=== PATIENT | female | born 1960 | race Caucasian/White ===

== ENCOUNTER → 2016-05-10 | Outpatient (REF) | payer BC | LOC: M LAB 11:37 | PROVIDERS: ATTEND Physician Assistant | DX: N39.0 Urinary tract infection, site not specified (principal) ==

== ENCOUNTER → 2016-05-27 | Outpatient (CLI) | payer BC ==
--- NOTE | 2016-05-27 14:34 | REP ---
PET/CT: HISTORY: Solitary pulmonary nodule. COMPARISONS: Chest CT study May 01, 2016. TECHNIQUE: 63 minutes following the intravenous injection of a 9.0 mCi dose of F-18 FDG, three-dimensional PET scintigraphy is acquired from the skull base to the proximal thighs. Triplanar noncontrast CT scanning is acquired through the same anatomic range for attenuation correction, and image registration with scan parameters optimized to minimize radiation exposure to the patient. PET scintigraphy and CT datasets were fused and displayed on a workstation with multiplanar and projection display capability. PET/CT FINDINGS: There is discernible, although non-hypermetabolic uptake within the pleuroparenchymal density in the right middle lobe. This is unchanged morphologically from the recent CT study. It has a fibroatelectatic morphologic appearance. Maximum SUV value 1.6. No other abnormal FDG accumulation is seen in the chest. The head and neck soft tissues are unremarkable. In the abdomen and pelvis, normal hepatic, splenic, gastrointestinal, and genitourinary FDG accumulation is seen. No abnormal abdominal or pelvic FDG accumulation is seen. No adrenal lesion is observed. The patient is status post gastric bypass. There are dystrophic calcifications visible in the right adnexal region unchanged from recent CT. IMPRESSION: Negative PET CT study. Follow up chest CT scan suggested. Signed by Kirby Mares MD 05/27/2016 06:37 P
== END ==
LOC: M RAD 07:41
PROVIDERS: ATTEND Internal Medicine Pulmonary Disease
DX: R91.1 Solitary pulmonary nodule (principal)
CPT/HCPCS: 78815; A9552

== ENCOUNTER → 2016-07-14 | Outpatient (REF) | payer BC | LOC: M LAB REF 12:34 | PROVIDERS: ATTEND Internal Medicine | DX: N76.0 Acute vaginitis (principal) ==

== ENCOUNTER → 2016-07-16 | Outpatient (REF) | payer BC | LOC: M LAB REF 11:59 | PROVIDERS: ATTEND Internal Medicine | DX: Z98.84 Bariatric surgery status (principal) ==

== ENCOUNTER → 2016-08-14 | Outpatient (CLI) | payer BC ==
--- NOTE | 2016-08-14 09:54 | REP ---
CT CHEST WITHOUT CONTRAST: 08/14/2016. Comparison: CT 05/01/2016. CT PET 05/27/2016. Clinical history: Solitary pulmonary nodule. CT PET negative. Findings: Noncontrast protocol utilized with coronal and sagittal reconstructions and coronal MIP lung windows. Scanning through the lungs again show a right middle lobe lesion, pleural based against the anterior chest wall, anterior diaphragm in the medial segment of the right middle lobe and measuring approximately 1.5 cm AP x 1 cm transverse x 1.8 cm vertical. It has linear stranding superiorly to the pleura and abuts the diaphragm and anterior chest wall pleura inferiorly. It actually appears slightly smaller in volume than on the previous study. I do not see progression. No new parenchymal findings, nodules or masses. There is some hyperinflation noted. There is no pleural thickening, calcified pleural plaque or other pleural-based mass. The heart is not enlarged. There is no pericardial thickening or effusion. There are some coronary calcifications noted. The aorta has calcifications of the arch. No axillary or supraclavicular mass. The bone windows show the sternum, manubrium, clavicles, AC joints, humeral heads, glenohumeral joints without acute finding. Ribs grossly intact. There are degenerative changes in the spine with marginal osteophytes but no compression deformity or destructive lesion. Upper abdomen shows staple lines from gastric bypass surgery as before. No splenomegaly. The liver is without a focal lesion. Gallbladder shows no calcified stone or mass. Upper poles of kidneys and adrenal glands unchanged. Visible portion of pancreas intact. Impression: 1. Stable parenchymal opacity right middle lobe medial segment abutting both the diaphragmatic and anterior chest wall pleura without other parenchymal lung lesions. Its size is stable to slightly smaller since the 05/01/2016 exam. 2. No mediastinal or hilar adenopathy nor mass. The bones grossly intact. Stable examination. Upper abdomen grossly intact. No new finding. Signed by Delroy Mclaughlin MD 08/14/2016 03:00 P
== END ==
LOC: M RAD 08:38
PROVIDERS: ATTEND Internal Medicine Pulmonary Disease
DX: R91.1 Solitary pulmonary nodule (principal)

== ENCOUNTER → 2016-11-21 | Outpatient (CLI) | payer BC ==
[2016-11-21 09:19] LABS: BASO % 0.4 % (0.0-1.0); EOS # 0.1 K/mm3 (0.0-0.50); LARGE UNSTAINED CELL # 0.2 K/mm3 (0.0-0.4); LARGE UNSTAINED CELL % 2.4 % (0.0-4.0); LYMPH # 1.6 K/mm3 (1.5-4.5); LYMPH % 26.4 % (24.0-44.0); MEAN CORPUSCULAR HEMOGLOBIN 33.7 pg (27.0-33.0); MEAN CORPUSCULAR HGB CONC 33.9 g/dl (32.0-36.5); MEAN CORPUSCULAR VOLUME 99.5 fl (80.0-96.0); MONO # 0.4 K/mm3 (0.0-0.8); MONO % 6.1 % (0.0-5.0); NEUTROPHILS # 3.9 K/mm3 (1.8-7.7); NEUTROPHILS % 62.8 % (36.0-66.0); PLATELET COUNT, AUTOMATED 260 k/mm3 (150-450); RED CELL DISTRIBUTION WIDTH 12.4 % (11.5-14.5); WHITE BLOOD COUNT 6.2 K/mm3 (4.0-10.0)
[2016-11-21 09:46] LABS: ALBUMIN 3.5 GM/DL (3.2-5.2); ALBUMIN/GLOBULIN RATIO 1.06 (1.00-1.93); ALKALINE PHOSPHATASE 100 U/L (45-117); ALT/SGPT 20 U/L (12-78); ANION GAP 5 MEQ/L (8-16); AST/SGOT 11 U/L (15-37); BILIRUBIN,TOTAL 0.4 MG/DL (0.2-1.0); BLOOD UREA NITROGEN 16 MG/DL (7-18); CARBON DIOXIDE LEVEL 30 MEQ/L (21-32); CHLORIDE LEVEL 106 MEQ/L (98-107); CREATININE FOR GFR 0.59 MG/DL (0.55-1.02); FERRITIN 170 NG/ML (8-252); GLOMERULAR FILTRATION RATE > 60.0 (>51); GLUCOSE, FASTING 82 MG/DL (70-105); MAGNESIUM LEVEL 2.3 MG/DL (1.8-2.4); PERCENT SATURATION 47.1 % (13.2-37.4); PHOSPHORUS LEVEL 3.7 MG/DL (2.5-4.9); POTASSIUM SERUM 4.2 MEQ/L (3.5-5.1); SODIUM LEVEL 141 MEQ/L (136-145); TOTAL IRON BINDING CAPACITY 244 UG/DL (250-450); TOTAL PROTEIN 6.8 GM/DL (6.4-8.2)
[2016-11-23 09:57] LABS: VITAMIN B12 LEVEL 621 PG/ML (247-911)
[2016-11-24 10:55] LABS: PRETREATED FOLATE FOR RBCFOL 13.2 NG/ML
== END ==
LOC: M LAB 08:31
PROVIDERS: ATTEND Surgery
DX: K91.2 Postsurgical malabsorption, not elsewhere classified (principal); E55.9 Vitamin D deficiency, unspecified; Z98.84 Bariatric surgery status

== ENCOUNTER → 2017-02-19 | Outpatient (CLI) | payer BC ==
--- NOTE | 2017-02-19 13:58 | REP ---
CT of the chest without IV contrast for lung nodule. Followup: Comparisons are 05/01/2016 and 08/14/2016. The patients known right little middle lobe pleural-based lung nodule has slightly increased in size today measuring 2.2 by 1.0 cm (previously 1.5 x 1.0 cm). Additionally, there is now linear stranding extending from the superior margin of this nodule toward the right hilus. There are no other nodules or masses. There are no acute infiltrates or effusions. There are normal size mediastinal nodes. There is no mediastinal lymph node enlargement. No axillary lymph node enlargement. In the absence of IV contrast the study is insensitive for hilar lymph node enlargement. Thoracic aorta is unremarkable. Cardiac size normal. There is calcified atheroma in the coronary arteries. The visualized upper abdominal contents are unremarkable. There is no adrenal mass. There are surgical staple lines compatible with bariatric surgery, unchanged. Impression: The nodule in the right middle lobe has slightly increased size and there is now linear stranding from this nodule extending toward the right hilus. Signed by Enzo Lynn MD 02/19/2017 01:49 P
== END ==
LOC: M RAD 08:32
PROVIDERS: ATTEND Internal Medicine Pulmonary Disease
DX: R91.1 Solitary pulmonary nodule (principal)

== ENCOUNTER → 2017-08-17 | Outpatient (CLI) | payer BC | LOC: M RAD 06:59 | DX: R91.1 Solitary pulmonary nodule (principal) | CPT/HCPCS: 71250 ==

== ENCOUNTER → 2017-11-22 | Outpatient (REF) | payer BC ==
[2017-11-22 13:21] LABS: VITAMIN B12 LEVEL 982 PG/ML
[2017-11-22 13:38] LABS: FERRITIN 164 NG/ML (8-252)
== END ==
LOC: M LAB REF 12:29
DX: Z98.84 Bariatric surgery status (principal)
CPT/HCPCS: 82746

== ENCOUNTER → 2018-01-10 | Outpatient (CLI) | payer BC | LOC: M RAD 14:18 | DX: J32.9 Chronic sinusitis, unspecified (principal) | CPT/HCPCS: 70486 ==

== ENCOUNTER → 2018-08-31 | Outpatient (CLI) | payer BC ==
--- NOTE | 2018-08-31 07:49 | REP ---
Clinical: Follow up solitary pulmonary nodule. Technique: Axial noncontrast images from the thoracic inlet to the upper abdomen with coronal and sagittal re-formations. Comparison: 08/17/2017, 05/01/2016. Findings: The nodules/area of opacity in the basilar right middle lobe is identified but incompletely evaluated due to its current position adjacent to and inseparable from the right hemidiaphragm. However, this nodular area of opacity appears relatively similar to prior examination and without significant increase in size. The remainder of the bilateral lung zelaya are relatively clear and without significant acute process. No effusion. No pneumothorax. Tracheobronchial tree is patent. No obvious significant adenopathy noted. The mediastinum demonstrates atherosclerotic changes to the thoracic aorta and coronary arteries without aortic aneurysm or cardiomegaly. No pericardial effusion. Limited upper abdomen demonstrates prior gastric bypass surgery and normal / stable appearance the bilateral adrenal glands. Impression: 1. Nodular opacity in the basilar right middle lobe is partially obscured on current examination by the adjacent diaphragm but appears relatively stable and without evidence for increase in size. 2. No new acute mediastinal or pleuroparenchymal process appreciated. Electronically Signed by Maximino Campuzano MD 08/31/2018 07:40 A
== END ==
LOC: M RAD 07:06
PROVIDERS: ATTEND Internal Medicine Pulmonary Disease
DX: R91.1 Solitary pulmonary nodule (principal)

== ENCOUNTER → 2018-08-31 | Outpatient (REF) | payer BC ==
[2018-08-31 12:07] LABS: APPEARANCE, URINE HAZY (CLEAR); BACTERIA, URINE AUTO NEGATIVE (NEGATIVE); BILIRUBIN, URINE AUTO NEGATIVE (NEGATIVE); BLOOD, URINE BLOOD NEGATIVE (NEGATIVE); COLOR, URINE YELLOW (YELLOW); GLUCOSE, URINE (UA) AUTO NEGATIVE (NEGATIVE); KETONE, URINE AUTO NEGATIVE (NEGATIVE); LEUKOCYTE ESTERASE, URINE AUTO TRACE (NEGATIVE); MUCUS, URINE SMALL (NEGATIVE); NITRITE, URINE AUTO NEGATIVE (NEGATIVE); PROTEIN, URINE AUTO NEGATIVE (NEGATIVE); RBC, URINE AUTO 2 /HPF (0-3); SPECIFIC GRAVITY URINE AUTO 1.025 (1.002-1.035); SQUAMOUS EPITHELIAL CELL UR AU 3 /HPF (0-6); WBC, URINE AUTO 3 /HPF (0-3)
== END ==
LOC: M LAB REF 11:35
PROVIDERS: ATTEND Obstetrics & Gynecology
DX: N39.0 Urinary tract infection, site not specified (principal)

== ENCOUNTER → 2018-11-28 | Outpatient (REF) | payer BC ==
[2018-11-28 13:35] LABS: FERRITIN 146 NG/ML (8-252)
[2018-11-28 13:43] LABS: FOLATE > 24.0 NG/ML; VITAMIN B12 LEVEL 1014 PG/ML
== END ==
LOC: M LAB REF 12:42
PROVIDERS: ATTEND Internal Medicine
DX: Z98.84 Bariatric surgery status (principal)

== ENCOUNTER → 2018-11-29 | Outpatient (REF) | payer BC | LOC: M LAB REF 17:24 | PROVIDERS: ATTEND Internal Medicine | DX: N39.0 Urinary tract infection, site not specified (principal) ==

== ENCOUNTER → 2019-03-18 | Outpatient (REF) | payer BC ==
[2019-03-18 13:11] LABS: APPEARANCE, URINE HAZY (CLEAR); BACTERIA, URINE AUTO NEGATIVE (NEGATIVE); BILIRUBIN, URINE AUTO NEGATIVE (NEGATIVE); BLOOD, URINE BLOOD NEGATIVE (NEGATIVE); COLOR, URINE YELLOW (YELLOW); GLUCOSE, URINE (UA) AUTO NEGATIVE (NEGATIVE); KETONE, URINE AUTO NEGATIVE (NEGATIVE); LEUKOCYTE ESTERASE, URINE AUTO NEGATIVE (NEGATIVE); MUCUS, URINE SMALL (NEGATIVE); NITRITE, URINE AUTO NEGATIVE (NEGATIVE); PROTEIN, URINE AUTO NEGATIVE (NEGATIVE); RBC, URINE AUTO 1 /HPF (0-3); SPECIFIC GRAVITY URINE AUTO 1.026 (1.002-1.035); SQUAMOUS EPITHELIAL CELL UR AU 2 /HPF (0-6); UROBILINOGEN, URINE AUTO 0.2 mg/dL (0.0-2.0); WBC, URINE AUTO 2 /HPF (0-3)
== END ==
LOC: M LAB REF 12:54
PROVIDERS: ATTEND Nurse Practitioner Family
DX: N39.0 Urinary tract infection, site not specified (principal)

== ENCOUNTER 2019-06-19 12:17 | Emergency (ER) | payer BC ==
[~2019-06-19] VITALS: Ht 170.2 cm; Wt 105.8 kg
[2019-06-19] MEDS ORDERED: OMEP-221 (12:26)
[2019-06-19] MEDS ORDERED: CYCL10TA (12:26)
[2019-06-19] MEDS ORDERED: BUPR150T3 (12:26)
[2019-06-19 13:14] LABS: BASO % 0.5 % (0.0-1.0); EOS # 0.2 10^3/uL (0.0-0.5); EOS % 2.4 % (0.0-3.0); HEMATOCRIT 39.7 % (36.0-47.0); LYMPH # 1.7 10^3/uL (1.5-5.0); LYMPH % 26.8 % (24.0-44.0); MEAN CORPUSCULAR HGB CONC 32.7 g/dl (32.0-36.5); MEAN CORPUSCULAR VOLUME 97.8 fl (80.0-96.0); MONO # 0.4 10^3/uL (0.0-0.8); MONO % 6.6 % (0.0-5.0); NEUTROPHILS % 63.5 % (36.0-66.0); PLATELET COUNT, AUTOMATED 259 10^3/uL (150-450); RED BLOOD COUNT 4.06 10^6/uL (4.00-5.40); WHITE BLOOD COUNT 6.2 10^3/uL (4.0-10.0)
[2019-06-19] MEDS ORDERED: KETOROLAC 30 MG/ML VIAL (J1885) IV ONE (13:30)
[2019-06-19] MEDS ORDERED: NS 1,000 ML IV ONE (13:30)
[2019-06-19 13:36] LABS: ALBUMIN 3.5 GM/DL (3.2-5.2); BILIRUBIN,DIRECT 0.1 MG/DL (0.0-0.2); BILIRUBIN,TOTAL 0.2 MG/DL (0.2-1.0); TOTAL PROTEIN 6.7 GM/DL (6.4-8.2)
--- NOTE | 2019-06-19 14:02 | REP ---
Right quadrant sonography: History: Right upper quadrant pain. Comparison CT imaging August 31, 2018. Comparison sonography February 01, 2015. Findings: Scanning through right upper quadrant of the abdomen demonstrates normal sized thin-walled gallbladder with multiple echogenic foci in the gallbladder wall casting ring down shadowing artifact consistent with adenomyomatosis of the gallbladder. This is unchanged from the comparison study 2014. No gallstone or polyp is seen. Common bile duct is normal measuring 0.6 cm in greatest diameter. The pancreas is obscured by abdominal gas. No focal liver lesion is seen. Liver texture is somewhat coarse as before. There is no evidence of ascites or right renal abnormality. The right kidney measures 11.7 x 5.2 x 4.3 cm. Impression: Echogenic foci with ring down artifact gallbladder wall consistent with adenomyomatosis. Unchanged from the 2015 prior sonogram. No evidence of gallstones. Otherwise negative. Pancreas obscured by abdominal gas. Electronically Signed by Kirby Mares MD 06/19/2019 02:24 P
[2019-06-19] MEDS ORDERED: NAPR-837 PO (14:29)
[2019-06-19] MEDS ORDERED: ZOFR4TAB16 PO (14:29)
[2019-06-19 14:41] VITALS: BP 193/88
== END 2019-06-19 14:43 | disposition home or self-care (01) ==
LOC: M ED 12:17
DX: R10.9 Unspecified abdominal pain (principal); R07.1 Chest pain on breathing; Z98.84 Bariatric surgery status; Z79.899 Other long term (current) drug therapy; Z88.0 Allergy status to penicillin
CPT/HCPCS: 76705; 80047; 80076; 82150; 83690; 85025; 96361; 96374; 99284; J1885

== ENCOUNTER → 2019-09-04 | Outpatient (REF) | payer BC ==
[~2019-09-04] MED LIST: BUPR150T3; CYCL-707; NAPR-837 PO; OMEP-221; ZOFR4TAB16 PO
[2019-09-04 16:29] LABS: APPEARANCE, URINE HAZY (CLEAR); BACTERIA, URINE AUTO 1+ (NEGATIVE); BILIRUBIN, URINE AUTO NEGATIVE (NEGATIVE); BLOOD, URINE BLOOD NEGATIVE (NEGATIVE); CALCIUM OXALATE CRYSTALS SMALL; COLOR, URINE YELLOW (YELLOW); GLUCOSE, URINE (UA) AUTO NEGATIVE (NEGATIVE); KETONE, URINE AUTO NEGATIVE (NEGATIVE); LEUKOCYTE ESTERASE, URINE AUTO NEGATIVE (NEGATIVE); MUCUS, URINE SMALL (NEGATIVE); NITRITE, URINE AUTO NEGATIVE (NEGATIVE); PROTEIN, URINE AUTO NEGATIVE (NEGATIVE); RBC, URINE AUTO 1 /HPF (0-3); SPECIFIC GRAVITY URINE AUTO 1.023 (1.002-1.035); SQUAMOUS EPITHELIAL CELL UR AU 3 /HPF (0-6); WBC, URINE AUTO 2 /HPF (0-3)
== END ==
LOC: M LAB REF 15:57
PROVIDERS: ATTEND Obstetrics & Gynecology
DX: R39.15 Urgency of urination (principal)

== ENCOUNTER → 2019-09-18 | Outpatient (CLI) | payer BC ==
--- NOTE | 2019-09-19 06:24 | REP ---
Clinical: Solitary pulmonary nodule. Technique: Axial noncontrast images from the thoracic inlet to the upper abdomen with coronal and sagittal re-formations. Comparison: 08/31/2018, 02/19/2017 Findings: The bilateral lung zelaya are relatively well aerated and essentially clear. The irregular opacity/nodule with adjacent stranding / scarring at the base of the right middle lobe appears to have essentially resolved with only minimal residual scarring now identified. The remainder of lung zelaya are clear and no further consolidation, significant nodule or mass lesion is appreciated. No pleural effusion. No pneumothorax. Tracheobronchial tree is patent. No obvious adenopathy. Mediastinum demonstrates atherosclerotic changes to the thoracic aorta and coronary arteries without aortic aneurysm or cardiomegaly. No pericardial effusion. Limited upper abdomen demonstrates evidence of prior gastric bypass surgery along with normal bilateral adrenal glands and normal collapsed gallbladder. Impression: 1. Previously noted area of opacity and stranding at the base of the right middle lobe has essentially resolved with only minimal residual scarring now noted. 2. No further acute/new mediastinal or pleuroparenchymal process appreciated. Electronically Signed by Maximino Campuzano MD 09/19/2019 06:15 A
== END ==
LOC: M RAD 13:08
PROVIDERS: ATTEND Physician Assistant
DX: J98.4 Other disorders of lung (principal); I70.0 Atherosclerosis of aorta; I25.10 Atherosclerotic heart disease of native coronary artery without angina pectoris

== ENCOUNTER → 2019-12-04 | Outpatient (REF) | payer BC ==
[~2019-12-04] MED LIST changes: +ALLE1TAB23 PO; +BIOT50004 PO; -BUPR150T3; +BUPR150T3 PO; +CALCCAP4 PO; +CYAN500T8 PO; -CYCL-707; +CYCL-707 PO; +D31000TA2 PO; +FLUTISP; +GNP250TA9 PO; +MULTCAP PO; +NAPR-885 PO
[2020-01-30 10:56] LABS: FERRITIN 117 NG/ML (8-252); FOLATE > 24.0 NG/ML; VITAMIN B12 LEVEL 867 PG/ML
== END ==
LOC: M LAB REF 16:06
PROVIDERS: ATTEND Internal Medicine
DX: Z98.84 Bariatric surgery status (principal)

== ENCOUNTER → 2020-01-06 | Outpatient (CLI) | payer BC | LOC: M LABSMTC 08:03 | PROVIDERS: ATTEND Anesthesiology | DX: Z01.812 Encounter for preprocedural laboratory examination (principal); Z20.828 Contact with and (suspected) exposure to other viral communicable diseases | CPT/HCPCS: C9803; U0003 ==

== ENCOUNTER 2020-01-11 09:17 | Day surgery (SDC) | payer BC ==
[~2020-01-11] VITALS: Ht 165.1 cm; Wt 107.0 kg
[~2020-01-11 09:17] MED LIST changes: +NS 1,000 ML IV ONE
[2020-01-11] MEDS ORDERED: LIDOCAINE 2% 100MG/5ML SDV (FOR ANES.) As Ordered ONE (10:32)
[2020-01-11] MEDS ORDERED: propofoL 500 MG/50 ML VIAL As Ordered ONE ×3 (10:32→11:56)
--- NOTE | 2020-01-11 11:10 | ROOR ---
Patient Name: Ting Bhandari Procedure Date: 01/11/2020 10:31 AM Date of : 1960 Age: 59 Room: [facility] Gender: Female Note Status: Finalized Procedure: Colonoscopy Indications: High risk colon cancer surveillance: Personal history of colonic polyps Providers: Dangelo Laguna Jr, MD Referring MD: Debbi DELGADO MD Requesting Provider: Medicines: Propofol per Anesthesia Complications: No immediate complications. Procedure: Pre-Anesthesia Assessment: - Prior to the procedure, a History and Physical was performed, and patient medications and allergies were reviewed. The patient is competent. The risks and benefits of the procedure and the sedation options and risks were discussed with the patient. All questions were answered and informed consent was obtained. Patient identification and proposed procedure were verified by the physician and the nurse in the pre-procedure area and in the procedure room. Mental Status Examination: alert and oriented. Airway Examination: normal oropharyngeal airway and neck mobility. Respiratory Examination: clear to auscultation. CV Examination: normal. ASA Grade Assessment: II - A patient with mild systemic disease. After reviewing the risks and benefits, the patient was deemed in satisfactory condition to undergo the procedure. The anesthesia plan was to use moderate sedation / analgesia (conscious sedation). Immediately prior to administration of medications, the patient was re-assessed for adequacy to receive sedatives. The heart rate, respiratory rate, oxygen saturations, blood pressure, adequacy of pulmonary ventilation, and response to care were monitored throughout the procedure. The physical status of the patient was re-assessed after the procedure. The Colonoscope was introduced through the anus and advanced to the cecum, identified by appendiceal orifice and ileocecal valve. The colonoscopy was performed without difficulty. The patient tolerated the procedure well. The quality of the bowel preparation was fair. Findings: The cecum, appendiceal orifice and ileocecal valve appeared normal. Multiple hyperplastic and semi-sessile polyps were found in the rectum, recto-sigmoid colon, sigmoid colon, descending colon, transverse colon and ascending colon. The polyps were small in size. These polyps were removed with a hot snare. Resection and retrieval were complete. Impression: - Preparation of the colon was fair. - The cecum, appendiceal orifice and ileocecal valve are normal. - Multiple small polyps in the rectum, at the recto-sigmoid colon, in the sigmoid colon, in the descending colon, in the transverse colon and in the ascending colon, removed with a hot snare. Resected and retrieved. Recommendation: - Repeat colonoscopy in 3 - 5 years for surveillance based on pathology results. Dangelo Laguna MD Dangelo Laguna Jr, MD 01/11/2020 11:09:53 AM Electronically signed by Dangelo Laguna Jr, MD Number of Addenda: 0 Note Initiated On: 01/11/2020 10:31 AM Estimated Blood Loss: Estimated blood loss: none.
[2020-01-11 11:30] VITALS: BP 162/93
== END 2020-01-11 11:39 | disposition home or self-care (01) ==
LOC: M OPP 09:17
PROVIDERS: ATTEND Surgery
DX: Z12.11 Encounter for screening for malignant neoplasm of colon (principal); Z86.010 Personal history of colon polyps; K62.1 Rectal polyp; K63.5 Polyp of colon; K21.9 Gastro-esophageal reflux disease without esophagitis; F17.210 Nicotine dependence, cigarettes, uncomplicated; Z79.899 Other long term (current) drug therapy; Z88.0 Allergy status to penicillin; Z98.84 Bariatric surgery status

== ENCOUNTER → 2020-10-17 | Outpatient (CLI) | payer BC ==
[~2020-10-17] MED LIST changes: +BUPR150T12 PO; -BUPR150T3 PO; +CYAN500T14 PO; -CYAN500T8 PO; -NS 1,000 ML IV ONE
--- NOTE | 2020-10-20 10:57 | REP ---
INDICATION: SOLITARY PULMONARY NODULE COMPARISON: 09/18/2019, 08/31/2018 TECHNIQUE: Axial noncontrast images from the thoracic inlet to the upper abdomen with coronal and sagittal reformations. This CT examination was performed using the following dose reduction techniques: Automated exposure control, adjustment of mA and/or kv according to the patient's size, and use of iterative reconstruction technique. FINDINGS: The lung zelaya demonstrate chronic changes which remains stable with most recent prior examination including small linear scarring along the anterobasilar right middle lobe. No acute consolidation, significant nodule, or mass lesion. No effusion. No pneumothorax. Tracheobronchial tree is patent. No significant adenopathy. Mediastinum demonstrates relatively stable atherosclerotic changes to the thoracic aorta and coronary arteries without aortic aneurysm. No cardiomegaly or pericardial effusion. Surrounding musculoskeletal structures demonstrate age-related changes. Upper abdomen demonstrates normal bilateral adrenal glands. IMPRESSION: Relatively stable chronic appearing changes. No acute mediastinal or pleuroparenchymal process appreciated <Electronically signed by Maximino Campuzano > 10/20/20 [id number]
== END ==
LOC: M RAD 10:03
PROVIDERS: ATTEND Physician Assistant
DX: R91.1 Solitary pulmonary nodule (principal); I70.0 Atherosclerosis of aorta; I25.10 Atherosclerotic heart disease of native coronary artery without angina pectoris

== ENCOUNTER → 2021-01-29 | Outpatient (REF) | payer BC ==
[2021-01-29 19:10] LABS: FOLATE 23.4 NG/ML
== END ==
LOC: M LAB REF 17:43
PROVIDERS: ATTEND Internal Medicine
DX: Z98.84 Bariatric surgery status (principal)

== ENCOUNTER → 2021-04-15 | Outpatient (CLI) | payer BC ==
[~2021-04-15] MED LIST changes: -OMEP-221; +OMEP40CA5
[2021-04-15 14:05] LABS: C REACTIVE PROTEIN QUANTITATIV 0.55 MG/DL (0.00-0.30); RHEUMATOID FACTOR QUANT < 10.0 IU/ML (<15.0); URIC ACID 4.4 MG/DL (2.6-6.0)
[2021-04-23 23:08] LABS: ANTINUCLEAR ANTIBODIES DIRECT Negative (Negative); HLA-B27 Negative (.); Lyme Disease IgG/IgM Antibodie <0.91 ISR (0.00-0.90); Lyme Disease IgM Ab Quantitati <0.80 index (0.00-0.79)
== END ==
LOC: M PLALAB 10:34
PROVIDERS: ATTEND Physician Assistant Surgical
DX: M50.30 Other cervical disc degeneration, unspecified cervical region (principal)

== ENCOUNTER → 2021-04-15 | Outpatient (CLI) | payer BC | LOC: M PLAIMG 10:30 | PROVIDERS: ATTEND Physician Assistant Surgical | DX: M50.31 Other cervical disc degeneration, high cervical region (principal); M50.321 Other cervical disc degeneration at C4-C5 level; M50.322 Other cervical disc degeneration at C5-C6 level; M50.323 Other cervical disc degeneration at C6-C7 level; M50.223 Other cervical disc displacement at C6-C7 level; M48.02 Spinal stenosis, cervical region ==

== ENCOUNTER → 2021-04-30 | Outpatient (REF) | payer BC ==
[~2021-04-30] MED LIST changes: +OMEP-221; -OMEP40CA5
== END ==
LOC: M LAB REF 16:12
PROVIDERS: ATTEND Internal Medicine
DX: N39.0 Urinary tract infection, site not specified (principal)

== ENCOUNTER → 2021-07-30 | Outpatient (REF) | payer BC ==
[~2021-07-30] MED LIST changes: -D31000TA2 PO; -OMEP-221; +OMEP40CA5; +VITA100093 PO
[2021-07-30 21:09] LABS: APPEARANCE, URINE CLOUDY (CLEAR); BACTERIA, URINE AUTO 2+ (NEGATIVE); BILIRUBIN, URINE AUTO NEGATIVE (NEGATIVE); BLOOD, URINE BLOOD 3+ (NEGATIVE); COLOR, URINE AMBER (YELLOW); GLUCOSE, URINE (UA) AUTO NEGATIVE (NEGATIVE); KETONE, URINE AUTO TRACE mg/dL (NEGATIVE); LEUKOCYTE ESTERASE, URINE AUTO 3+ (NEGATIVE); MUCUS, URINE SMALL (NEGATIVE); NITRITE, URINE AUTO POSITIVE (NEGATIVE); PROTEIN, URINE AUTO 2+ mg/dL (NEGATIVE); RBC, URINE AUTO TNTC /HPF (0-3); SPECIFIC GRAVITY URINE AUTO 1.027 (1.002-1.035); SQUAMOUS EPITHELIAL CELL UR AU 4 /HPF (0-6); WBC, URINE AUTO TNTC /HPF (0-3)
== END ==
LOC: M LAB REF 20:46
PROVIDERS: ATTEND Physician Assistant Medical
DX: N39.0 Urinary tract infection, site not specified (principal)

== ENCOUNTER → 2021-09-24 | Outpatient (REF) | payer OTHER ==
[2021-09-24 18:32] LABS: APPEARANCE, URINE CLOUDY (CLEAR); BACTERIA, URINE AUTO NEGATIVE (NEGATIVE); BILIRUBIN, URINE AUTO NEGATIVE (NEGATIVE); BLOOD, URINE BLOOD 3+ (NEGATIVE); COLOR, URINE AMBER (YELLOW); GLUCOSE, URINE (UA) AUTO NEGATIVE (NEGATIVE); KETONE, URINE AUTO TRACE mg/dL (NEGATIVE); LEUKOCYTE ESTERASE, URINE AUTO 3+ (NEGATIVE); MUCUS, URINE SMALL (NEGATIVE); NITRITE, URINE AUTO NEGATIVE (NEGATIVE); PROTEIN, URINE AUTO 2+ mg/dL (NEGATIVE); RBC, URINE AUTO TNTC /HPF (0-3); SPECIFIC GRAVITY URINE AUTO 1.026 (1.002-1.035); SQUAMOUS EPITHELIAL CELL UR AU 3 /HPF (0-6); WBC, URINE AUTO TNTC /HPF (0-3)
== END ==
LOC: M LAB REF 18:10
PROVIDERS: ATTEND Physician Assistant
DX: N39.0 Urinary tract infection, site not specified (principal)

== ENCOUNTER → 2021-10-29 | Outpatient (REF) | payer OTHER ==
[2021-11-01 02:11] LABS: ANTINUCLEAR ANTIBODIES DIRECT Negative (Negative); CYCLIC CITRULLINATED PEPTIDE 8 units (0-19)
== END ==
LOC: M LAB REF 12:05
PROVIDERS: ATTEND Internal Medicine
DX: M25.50 Pain in unspecified joint (principal)

== ENCOUNTER → 2021-11-10 | Outpatient (CLI) | payer OTHER | LOC: M RAD 06:48 | PROVIDERS: ATTEND Internal Medicine Pulmonary Disease | DX: F17.218 Nicotine dependence, cigarettes, with other nicotine-induced disorders (principal); Z12.2 Encounter for screening for malignant neoplasm of respiratory organs ==

== ENCOUNTER → 2022-02-03 | Outpatient (REF) | payer OTHER | LOC: M LAB REF 16:20 | PROVIDERS: ATTEND Internal Medicine | DX: M06.4 Inflammatory polyarthropathy (principal) ==

== ENCOUNTER → 2022-02-13 | Outpatient (CLI) | payer OTHER | LOC: M WHC 13:19 | PROVIDERS: ATTEND Internal Medicine | DX: N95.0 Postmenopausal bleeding (principal); R93.89 Abnormal findings on diagnostic imaging of other specified body structures ==

== ENCOUNTER → 2022-08-20 | Outpatient (CLI) | payer OTHER ==
[~2022-08-20] MED LIST changes: +FLUT50SP17; -FLUTISP
== END ==
LOC: M WUC 12:45
PROVIDERS: ATTEND Nurse Practitioner Family
DX: R05.9 Cough, unspecified (principal); R06.2 Wheezing

== ENCOUNTER → 2022-12-01 | Outpatient (CLI) | payer OTHER | LOC: M RAD 06:36 | PROVIDERS: ATTEND Internal Medicine Pulmonary Disease | DX: Z12.2 Encounter for screening for malignant neoplasm of respiratory organs (principal); F17.218 Nicotine dependence, cigarettes, with other nicotine-induced disorders ==

== ENCOUNTER 2023-03-11 08:41 | Day surgery (SDC) | payer OTHER ==
[~2023-03-11] VITALS: Ht 170.2 cm; Wt 106.6 kg
[~2023-03-11 08:41] MED LIST changes: +ACET650T61 PO; +GABA-282 PO; +LIDOCAINE 2% 100MG/5ML SDV (FOR ANES.) As Ordered ONE; +NS 1,000 ML IV ONE; +OMEP1CAP73 PO; +VITMTA PO; +propofoL 200 MG/20 ML VIAL As Ordered ONE
[2023-03-11 09:51] VITALS: TEMP 97.2
[2023-03-11 10:04] VITALS: BP 145/66; O2SAT 97
== END 2023-03-11 10:04 | disposition home or self-care (01) ==
LOC: M OPP 08:41
PROVIDERS: ATTEND Surgery
DX: Z12.11 Encounter for screening for malignant neoplasm of colon (principal); Z86.010 Personal history of colon polyps; K57.30 Diverticulosis of large intestine without perforation or abscess without bleeding; Z98.84 Bariatric surgery status; F17.200 Nicotine dependence, unspecified, uncomplicated; Z79.1 Long term (current) use of non-steroidal anti-inflammatories (NSAID); Z79.83 Long term (current) use of bisphosphonates; Z79.891 Long term (current) use of opiate analgesic; Z79.899 Other long term (current) drug therapy

== ENCOUNTER → 2023-09-21 | Outpatient (REF) | payer OTHER ==
[~2023-09-21] MED LIST changes: -ALLE1TAB23 PO; -BIOT50004 PO; +BIOT5CAP8 PO; +FEXO-157 PO; -FLUT50SP17; +FLUTISP; -LIDOCAINE 2% 100MG/5ML SDV (FOR ANES.) As Ordered ONE; -NS 1,000 ML IV ONE; -propofoL 200 MG/20 ML VIAL As Ordered ONE
== END ==
LOC: M LAB REF 21:02
PROVIDERS: ATTEND Physician Assistant
DX: R30.0 Dysuria (principal)

== ENCOUNTER → 2023-10-22 | Outpatient (REF) | payer OTHER ==
[2023-10-26 12:57] LABS: HPV APTIMA Not Detected (Not Detected)
== END ==
LOC: M SFHCWAGY 12:34
PROVIDERS: ATTEND Specialist
DX: Z12.4 Encounter for screening for malignant neoplasm of cervix (principal); N39.0 Urinary tract infection, site not specified; R87.610 Atypical squamous cells of undetermined significance on cytologic smear of cervix (ASC-US)
CPT/HCPCS: 87086; 87624; G0123

== ENCOUNTER → 2023-11-23 | Outpatient (REF) | payer OTHER ==
[2023-11-23 18:08] LABS: C REACTIVE PROTEIN QUANTITATIV < 0.40 MG/DL (<1.0)
[2023-11-23 18:09] LABS: VITAMIN B12 LEVEL 921 PG/ML (211-911)
[2023-11-23 18:11] LABS: FERRITIN 75.6 NG/ML (7.3-270.7)
[2023-11-23 18:48] LABS: FOLATE 23.1 NG/ML (>5.4)
== END ==
LOC: M LAB REF 16:39
PROVIDERS: ATTEND Internal Medicine
DX: M06.4 Inflammatory polyarthropathy (principal); Z98.84 Bariatric surgery status

== ENCOUNTER → 2024-01-20 | Outpatient (CLI) | payer OTHER ==
[~2024-01-20] MED LIST changes: -FEXO-157 PO; +FEXO-63 PO
== END ==
LOC: M RAD 09:47
PROVIDERS: ATTEND Internal Medicine Pulmonary Disease
DX: Z12.2 Encounter for screening for malignant neoplasm of respiratory organs (principal); F17.218 Nicotine dependence, cigarettes, with other nicotine-induced disorders; I70.0 Atherosclerosis of aorta; I25.10 Atherosclerotic heart disease of native coronary artery without angina pectoris

== ENCOUNTER → 2024-04-05 | Outpatient (REF) | payer OTHER ==
[~2024-04-05] MED LIST changes: +GABA-1172 PO; -GABA-282 PO
[2024-04-05 17:17] LABS: APPEARANCE, URINE HAZY (CLEAR); BACTERIA, URINE AUTO 1+ (NEGATIVE); BILIRUBIN, URINE AUTO NEGATIVE (NEGATIVE); BLOOD, URINE BLOOD NEGATIVE (NEGATIVE); COLOR, URINE YELLOW (YELLOW); GLUCOSE, URINE (UA) AUTO NEGATIVE (NEGATIVE); KETONE, URINE AUTO TRACE mg/dL (NEGATIVE); LEUKOCYTE ESTERASE, URINE AUTO 2+ (NEGATIVE); MUCUS, URINE SMALL (NEGATIVE); NITRITE, URINE AUTO NEGATIVE (NEGATIVE); PROTEIN, URINE AUTO NEGATIVE (NEGATIVE); RBC, URINE AUTO 12 /HPF (0-3); SPECIFIC GRAVITY URINE AUTO 1.025 (1.002-1.035); SQUAMOUS EPITHELIAL CELL UR AU 8 /HPF (0-6); UROBILINOGEN, URINE AUTO 0.2 mg/dL (0.0-2.0); WBC, URINE AUTO 62 /HPF (0-3)
== END ==
LOC: M LAB REF 16:15
PROVIDERS: ATTEND Physician Assistant Medical
DX: N39.0 Urinary tract infection, site not specified (principal)

== ENCOUNTER → 2024-11-18 | Outpatient (CLI) | payer OTHER ==
[2024-11-18 10:44] LABS: CALCIUM LEVEL 9.0 MG/DL (8.3-10.6); CARBON DIOXIDE LEVEL 28.0 MMOL/L (20-31); CHLORIDE LEVEL 107.0 MMOL/L (98-107); CREATININE FOR GFR 0.79 MG/DL (0.55-1.30); GLOMERULAR FILTRATION RATE 83.5 (>45); POTASSIUM SERUM 4.4 MMOL/L (3.5-5.1); SODIUM LEVEL 146.0 MMOL/L (136-145)
== END ==
LOC: M LAB 08:08
PROVIDERS: ATTEND Internal Medicine
DX: I10 Essential (primary) hypertension (principal)

== ENCOUNTER → 2024-12-08 | Outpatient (CLI) | payer OTHER | LOC: M RAD 06:45 | PROVIDERS: ATTEND Physician Assistant Surgical | DX: S80.02XA Contusion of left knee, initial encounter (principal); S80.01XA Contusion of right knee, initial encounter; X58.XXXA Exposure to other specified factors, initial encounter; Y92.9 Unspecified place or not applicable; Y93.9 Activity, unspecified; Y99.9 Unspecified external cause status; M25.461 Effusion, right knee; M71.22 Synovial cyst of popliteal space [Baker], left knee; M25.462 Effusion, left knee; M17.0 Bilateral primary osteoarthritis of knee ==

== ENCOUNTER → 2024-12-25 | Outpatient (REF) | payer OTHER ==
[2024-12-25 21:57] LABS: APPEARANCE, URINE CLOUDY (CLEAR); BACTERIA, URINE AUTO NEGATIVE (NEGATIVE); BILIRUBIN, URINE AUTO NEGATIVE (NEGATIVE); BLOOD, URINE BLOOD NEGATIVE (NEGATIVE); GLUCOSE, URINE (UA) AUTO NEGATIVE (NEGATIVE); KETONE, URINE AUTO NEGATIVE (NEGATIVE); LEUKOCYTE ESTERASE, URINE AUTO 3+ (NEGATIVE); MUCUS, URINE LARGE (NEGATIVE); NITRITE, URINE AUTO NEGATIVE (NEGATIVE); PROTEIN, URINE AUTO 1+ mg/dL (NEGATIVE); RBC, URINE AUTO 5 /HPF (0-3); SPECIFIC GRAVITY URINE AUTO 1.030 (1.002-1.035); SQUAMOUS EPITHELIAL CELL UR AU 30 /HPF (0-6); TRANSITIONAL EPITHELIAL AUTO 2 /HPF; UROBILINOGEN, URINE AUTO 0.2 mg/dL (0.0-2.0); WBC, URINE AUTO 182 /HPF (0-3)
== END ==
LOC: M LAB REF 21:34
PROVIDERS: ATTEND Physician Assistant Medical
DX: N39.0 Urinary tract infection, site not specified (principal)

== ENCOUNTER → 2025-04-04 | Outpatient (REF) | payer OTHER ==
[2025-04-06 17:27] LABS: HPV APTIMA Not Detected (Not Detected)
== END ==
LOC: M SFHCWAGY 14:47
PROVIDERS: ATTEND Specialist
DX: Z12.4 Encounter for screening for malignant neoplasm of cervix (principal)
CPT/HCPCS: 87624; G0123